=== PATIENT | female | born 1975 | race Caucasian/White ===

== ENCOUNTER 2020-10-27 09:50 | Emergency (ER) | payer BC, SELFPAY ==
--- NOTE | ~2020-10-27 | US_ITS ---
EXAMINATION: US pelvic complete w TV DATE: 10/27/2020 10:50 INDICATION: Abnormal uterine bleeding Comparison:Ultrasound dated 01/06/2015 TECHNIQUE: Multiple transabdominal and endovaginal sonographic images of the pelvis performed. FINDINGS: The uterus measures 10.1 x 5.2 x 4.4 cm. The endometrial complex measures 1 cm. The right ovary is surgically absent. Left ovary is unremarkable measuring 3.8 x 2.9 x 2.9 cm. There is an adjacent hyperechoic mass measuring up to 2.5 cm compared with 2.9 cm on prior examination. There is free fluid in the pelvis. There are no abnormal masses seen on either side. IMPRESSION: 1. Echogenic 2.5 cm left ovarian/adnexal mass, likely a dermoid. Consider correlation with CT. Reviewed, dictated and finalized at location A. IMPRESSION: 1. Echogenic 2.5 cm left ovarian/adnexal mass, likely a dermoid. Consider corre lation with CT.
--- NOTE | ~2020-10-27 | CT_ITS ---
EXAMINATION: CT abdomen pelvis wo con DATE: 10/27/2020 11:49 INDICATION: Lower abdominal pain, adnexal mass TECHNIQUE: Computed tomography (CT) of the abdomen and pelvis was performed without intravenous contr ast. The dose-length product (DLP) was 828.27 mGy-cm. Automated exposure control and iterative recons truction technique were employed. COMPARISON: Ultrasound from today FINDINGS: There is a 4 mm nodule of the right lower lobe. The heart size is normal. The liver, spleen , pancreas, and left adrenal gland are normal. A 7 mm low-density mass in the lateral limb of the rig ht adrenal gland is consistent with an adenoma. The kidneys are unremarkable. No pathologically enlar ged abdominal or pelvic lymph nodes are identified. The appendix is normal. There is an approximately 6.3 x 2.8 cm left adnexal mass which demonstrates fat, fluid, and soft tissue density. There is mild lumbar spondylosis. IMPRESSION: 1. No CT correlate for lower abdominal pain. 2. Left adnexal mass with characteristics suggestive of a dermoid although evaluation is limited by t he absence of intravenous contrast. Recommend nonemergent DANCE THERAPIST follow-up and ultrasound in one year if not surgically removed. Reviewed, dictated and finalized at location A. IMPRESSION: 1. No CT correlate for lower abdominal pain. 2. Left adnexal mass with characteristics suggestive of a dermoid although eval uation is limited by the absence of intravenous contrast. Recommend nonemergent DANCE THERAPIST follow-up and ultrasound in one year if not surgically removed.
[2020-10-27 10:06] VITALS: BP 154/105; PULSE 94; RESP 16; TEMP 36.6; O2SAT 99
--- NOTE | 2020-10-27 10:11 | ED.FEMALEGU ---
HPI - Female Genitourinary General Chief complaint: WIRELESS OPERATOR Stated complaint: N/Diarrhea/Heavy Periods/Headache Time Seen by Provider: 10/27/20 09:56 Source: patient Mode of arrival: ambulatory Limitations: no limitations History of Present Illness HPI Narrative: This is a 45-year-old female that presents to the emergency department for abnormal uterine bleeding. Reports she started her cycle 5 days ago. Reports it has been very heavy. She has been having to use a tampon an hour. She is also having abnormal cramping. She called her primary doctor which prompted her to be seen in the ER. Denies fever, or urinary symptoms. Related Data Allergies Allergy/AdvReac Type Severity Reaction Status Date / Time lisinopril Allergy Unknown Verified 05/31/17 10:48 Review of Systems Review of Systems: CONSTITUTIONAL: Denies fever GASTROINTESTINAL: Reports pelvic cramping. Denies nausea, vomiting GENITOURINARY: Denies dysuria or hematuria. All systems reviewed & are unremarkable except as noted in HPI and below PMFSH Past Medical History Medical History (Updated 10/27/20 @ 13:21 by Tisha Head PA-C) History of PCOS Family History Family History (Updated 05/31/17 @ 10:51 by DOCTOR UNKNOWN) Other Cerebrovascular accident Diabetes mellitus Family history of malignant neoplasm Hypertension Social History Social History Smoking status: Current every day smoker Alcohol intake: current Exam Narrative: GENERAL: Well-appearing, well-nourished, and in no acute distress. HEAD: Normocephalic, atraumatic. EYES: EOMI. CHEST: Clear to auscultation. No respiratory distress. No wheezes rales or rhonchi HEART: Regular rate and rhythm. No murmur heard. Normal peripheral pulses. ABDOMEN: Soft, nontender, nondistended, normal active bowel sounds. EXTREMITIES: Normal range of motion. No edema. SKIN: Warm, dry, no rash. NEURO: No focal deficits. Alert and oriented x3. PSYCH: Normal mood and affect PELVIC: Small amount of dark red blood in the vaginal vault. Normal appearing cervix Course Consultations Consultation #1: Spoke with Dr. Cannon about patient and workup who will follow up in clinic. Date: 10/27/20 Time: 13:20 Vital Signs Vital signs: Vital Signs Temperature 98 F 10/27/20 10:06 Pulse Rate 94 10/27/20 10:06 Respiratory Rate 16 10/27/20 10:06 Blood Pressure 154/105 H 10/27/20 10:06 Pulse Oximetry 99 10/27/20 10:06 Temperature 98 F 10/27/20 10:06 Pulse Rate 94 10/27/20 10:06 Respiratory Rate 16 10/27/20 10:06 Blood Pressure 154/105 H 10/27/20 10:06 Pulse Oximetry 99 10/27/20 10:06 MDM - Female Genitourinary MDM Narrative Medical decision making narrative: Patient presents to the emergency department for abnormal uterine bleeding. Her vitals are stable. Hemoglobin is 12.6. Metabolic panel with mild transaminitis. Patient does report she thinks she has been told before that her liver enzymes have been elevated in the past. I do not have any recent labs to compare this to. Instructed to follow-up with her primary for this. Pelvic ultrasound shows a 2.5 cm left ovarian/adnexal mass likely dermoid cyst. Normal vascular flow to left ovary. Consider correlation with CT. CT scan of the abdomen and pelvis once again shows an adnexal mass with characteristics suggested of a dermoid cyst. Recommend nonemergent gynecologic follow-up. Spoke with Dr. Cannon about patient and workup who will follow up in clinic. Patient was updated on case findings. She is stable and felt appropriate for further outpatient evaluation. She was given warnings to return to the ER Lab Data Attestation: I reviewed the patient's lab results. Result diagrams: 10/27/20 10:55 10/27/20 10:56 Labs: Lab Results 10/27/20 10/27/20 10/27/20 Range/Units 10:55 10:55 10:56 WBC 9.7 (4.5-10.0) K/mm3 RBC 4.05 L (4.2-5.4) M/mm3 Hgb 12.6 (12.0-15.0) g/dL Hct 3
[2020-10-27 11:05] LABS: Basophils Absolute Auto 0.1 K/mm3 (0.0-0.1); Basophils Percent Auto 0.7 % (0.2-1.2); Eosinophils Absolute Auto 0.1 K/mm3 (0-0.3); Eosinophils Percent Auto 0.9 % (0-4.4); Hematocrit 38.6 % (37.0-47.0); Hemoglobin 12.6 g/dL (12.0-15.0); Immature Granulocyte Absolute 0.03 K/mm3 (0.00-0.031); Immature Granulocyte Percent A 0.3 % (0-0.5); Lymphocytes Absolute Auto 3.73 K/mm3 (0.9-3.2); Lymphocytes Percent Auto 38.5 % (18.3-44.2); Mean Corpuscular HGB Conc 32.6 g/dl (32-36); Mean Corpuscular Hemoglobin 31.1 pg (26-34); Mean Corpuscular Volume 95.3 fl (80-100); Mean Platelet Volume 9.9 fl (7.4-10.4); Monocytes Absolute Auto 0.5 K/mm3 (0.1-0.6); Monocytes Percent Auto 4.8 % (2.6-8.5); Neutrophils Absolute Auto 5.3 K/mm3 (1.3-6.7); Neutrophils Percent Auto 54.8 % (45.5-73.1); Platelet Count Result 220 k/mm3 (150-375); Red Blood Count 4.05 M/mm3 (4.2-5.4); Red Cell Distribution Width 13.2 % (11.5-14.5); White Blood Count 9.7 K/mm3 (4.5-10.0)
[2020-10-27] MEDS: IBUPROFEN IV 400 MG in SODIUM CHLORIDE 0.9% IV 100 ML 200 MG IVPB (11:17)
[2020-10-27 11:18] LABS: Alanine Aminotransferase 92 U/L (4-35); Albumin Level 4.4 g/dL (3.5-5.1); Alkaline Phosphatase 58 U/L (38-126); Anion Gap 12 mmol/L (8-16); Aspartate Amino Transferase 110 U/L (14-36); Bilirubin,Total 0.4 mg/dL (0.2-1.3); Blood Urea Nitrogen 9 mg/dL (7-17); Calcium 9.3 mg/dL (8.4-10.2); Carbon Dioxide 21 mmol/L (22-30); Chloride 106 mmol/L (98-107); Estimated CRCL calculation 131 ml/min; Estimated Glomerular Filt Rate > 60; Glucose 146 mg/dL (65-110); Potassium 3.9 mmol/L (3.4-5.0); Sodium 139 mmol/L (137-145)
[2020-10-27 11:29] LABS: Partial Thromboplastin Time 28.6 SECONDS (22.3-36.8); Prothrombin Time 12.6 Seconds (11.1-14.7)
[2020-10-27 13:51] VITALS: BP 137/96; PULSE 76; RESP 18; O2SAT 99
== END 2020-10-27 13:55 | disposition home or self-care (01) ==
PROVIDERS: Physician Assistant; Emergency Provider Emergency Medicine; PCP Physician Assistant
DX: N93.9 Abnormal uterine and vaginal bleeding, unspecified (principal); N83.202 Unspecified ovarian cyst, left side; R74.01 Elevation of levels of liver transaminase levels; F17.210 Nicotine dependence, cigarettes, uncomplicated
CPT/HCPCS: 36415; 74176; 76830; 76856; 80053; 85025; 85610; 85730; 86850; 86900; 86901; 96365; 99284; J1741

== ENCOUNTER → 2020-11-24 02:41 | Outpatient (CLI) | payer BC, SELFPAY ==
[2020-11-24 16:22] LABS: SARS-CoV-2 RNA PCR Negative
== END ==
PROVIDERS: PCP Physician Assistant; Visit Provider Obstetrics & Gynecology
DX: Z01.812 Encounter for preprocedural laboratory examination (principal); Z20.822 Contact with and (suspected) exposure to COVID-19
CPT/HCPCS: C9803; U0003; U0005

== ENCOUNTER 2020-11-24 08:56 | Outpatient (CLI) | payer BC, SELFPAY ==
--- NOTE | 2020-11-24 08:45 | ECG_ITS ---
Measurements Intervals [place] Rate: 66 P: 28 WA: 173 QRS: 64 QRSD: 92 T: 61 QT: 418 QTc: 438 Interpretive Statements SINUS RHYTHM INCOMPLETE RIGHT BUNDLE BRANCH BLOCK DELAYED PRECORDIAL R/S TRANSITION BORDERLINE T WAVE ABNORMALITY- ANTERIOR LEADS BORDERLINE ECG Electronically Signed On 11-24-2020 9:51:41 CDT by Juan López D.O.
== END 2020-11-24 08:57 | disposition home or self-care (01) ==
LOC: ANHSURGERY 09:01
PROVIDERS: PCP Physician Assistant; Visit Provider Obstetrics & Gynecology
DX: Z01.818 Encounter for other preprocedural examination (principal); N85.2 Hypertrophy of uterus; I10 Essential (primary) hypertension; I45.10 Unspecified right bundle-branch block; I25.2 Old myocardial infarction
CPT/HCPCS: 36415; 86850; 86900; 86901; 93005

== ENCOUNTER 2020-11-27 00:39 | Day surgery (SDC) | payer BC, SELFPAY ==
[2020-11-20 09:19] VITALS: BMI 33.3
--- NOTE | 2020-11-24 07:45 | PM.IMHP ---
H&P: HPI History of Present Illness Date/Time: 11/24/20 07:45 This is a 45-year-old 3 para 3 admitted for robotic total vaginal hysterectomy and left salpingo-oophorectomy. She has what appears to be a large left dermoid cyst and complains of bleeding and dysmenorrhea as well as dyspareunia. Uterus is also enlarged. Risks and benefits reviewed including but not exclusive of , aspiration pneumonia, bleeding, transfusion, perforation injury to bowel, bladder, ureters, or other internal organs with need for open laparotomy. She received the ACOG handout entitled hysterectomy. She had all questions answered. She asked to proceed Chief Complaint: Left dermoid cyst and enlarged uterus with bleeding and dysmenorrhea Review of Systems Review of Systems: All systems reviewed & are unremarkable except as noted in HPI and below PMFSH Past Medical History Medical History History of PCOS Family History Family History Other Cerebrovascular accident Diabetes mellitus Family history of malignant neoplasm Hypertension Social History Social History Smoking packs per day: 0.5 Smoking cigarettes per day: 10.0 Years smoked: 30 Smoking pack-years: 15.00 Smoking status: Current every day smoker Tobacco type: cigarettes Alcohol intake: never Substance use: never Substance use type: does not use Spiritual care concerns: No Meds Home Medications and Allergies Home Medications Medication Instructions Recorded Confirmed Type No Home Medications 11/20/20 11/20/20 History Allergies Allergy/AdvReac Type Severity Reaction Status Date / Time lisinopril Allergy Unknown Cough Verified 11/20/20 09:18 Exam Const: General: no acute distress Eyes: General: appearance normal, both eyes and all related structures Neck: Neck: supple and no JVD Thyroid: thyroid normal Resp: Effort & Inspection: normal respiratory effort Auscultation: clear to auscultation bilaterally Cardio: Rate: regular rate Rhythm: regular rhythm GI: Inspection: non-distended GI Palp: Yes Soft to palpation, No Tenderness to palpation present (GI) and No Guarding due to palpation present (GI) Auscultation: normal bowel sounds : External Female Exam: normal external appearance Speculum Exam - Cervix: normal appearance of the cervix Bimanual exam- vagina & uterus: enlarged Bimanual Exam- Adnexa, other: Adnexal mass present on the left Skin: General skin exam: no rashes or lesions noted Extrem: General: normal to inspection and no edema Psych: Mental Status: mental status grossly normal Affect: normal affect Assessment and Plan Additional Plan Impression: Enlarged uterus and left dermoid cyst Plan: Robotic total vaginal hysterectomy and left salpingo-oophorectomy
[2020-11-27] VITALS (13 sets, daily range): BP systolic 123–159; BP diastolic 70–96; PULSE 69–96; RESP 10–18; TEMP 36.5–37.5; O2SAT 92–99
--- NOTE | 2020-11-27 07:10 | WPDHPUPDATE1 ---
History and Physical Update Update Date/Time: 11/27/20 07:10 History and Physical has been reviewed, including an updated exam of the patient. There are NO changes in the patient's condition. Risks, benefits, and alternatives have been discussed and questions answered. Patient agrees to proceed with procedure.
[2020-11-27] MEDS: ACETAMINOPHEN 500 MG TABLET 1000 MG PO (08:45)
[2020-11-27] MEDS: LACTATED RINGERS 1,000 ML 30 ML IV CONT ×2 (08:46→11:38)
--- NOTE | 2020-11-27 08:49 | P.PNAN_ITS ---
Anes - Initial Pre Proc Eval Procedure: Operation Date: 11/27/20 10:00 Proposed Procedures p Robotic Assisted Total Vaginal Hysterectomy with Left Salpingo-Oophorectomy - Scout Abel MD Date/Time: 11/27/20 08:49 Surgeon: Scout Abel MD Pre Op Diagnosis: irregular bleeding,dermoid cyst, enl uterus,dysme Patient Data Age: 45 Gender: F Height: 1.65 m Weight: 90.72 kg Allergies Allergy/AdvReac Type Severity Reaction Status Date / Time lisinopril Allergy Unknown Cough Verified 11/27/20 08:33 Home Medications Medication Instructions Recorded Confirmed Type hydrocodone-acetaminophen 1 tablet PO Q4H PRN #30 tablet 11/27/20 Rx Patient hx anesthesia problems: none and other (motion sickness) Family hx anesthesia problems: none Results Review: All pre-operative results and documents have been reviewed as part of the pre-operative evaluation. FORMERLY [facility], [facility] Past Medical History Medical History History of PCOS Hypertension Family History Family History Other Cerebrovascular accident Diabetes mellitus Family history of malignant neoplasm Hypertension Social History Social History Smoking packs per day: 0.5 Smoking cigarettes per day: 10.0 Years smoked: 30 Smoking pack-years: 15.00 Smoking status: Current every day smoker Tobacco type: cigarettes Alcohol intake: never Substance use: never Substance use type: does not use Living arrangements: with family Spiritual care concerns: No Anes - Eval Final PreProcedure Day of Procedure 11/27/20 08:49 Patient weight: obese Heart: regular rate and rhythm Lungs: decreased breath sounds Airway: Mallampati scale class II Neurological: alert and oriented Last oral intake: >/= 8 hours ASA classification: III Emergent: no Anesthetic plan: proceed Anesthesia type and monitoring: general ETT and standard monitoring Results Review: All pre-operative results and documents have been reviewed as part of the pre-operative evaluation. Informed Consent: The patient's anesthetic plan and its attendant risks and benefits were discussed with the patient/family/POA. Questions were solicited and answers provided to the satisfaction of the patient/family/POA.
[2020-11-27] MEDS: KETOROLAC 15 MG/ML VIAL (*BKC) IV PUSH (09:00)
[2020-11-27] MEDS: SCOPOLAMINE 1.5 MG PATCH TRANSDERM (09:39)
[2020-11-27] MEDS: ceFAZolin 2 GM/D5W 50 ML 2 GM/50 ML BAG IVPB (10:10)
--- NOTE | 2020-11-27 11:34 | W.PM.PROC2 ---
Procedure Note - Detailed Date of Procedure 11/27/20 Pre-op Diagnosis irregular bleeding,dermoid cyst, enl uterus,dysme Post-op Diagnosis same Procedure Performed Robotic total vaginal hysterectomy and left salpingo-oophorectomy with right salpingectomy Surgeon Scout Abel MD Anesthesia general Indications This is a 45-year-old female with an enlarged uterus bleeding and a suspected left large dermoid cyst Findings Enlarged uterus. Normal-appearing right ovary. Tubes status post tubal ligation. The large complex left ovarian cyst Description of Procedure The patient was prepped draped in the normal sterile fashion placed in the dorsal lithotomy position. Under excellent general endotracheal anesthesia weighted speculum placed in posterior fornix. Anterior lip of the cervix grasped with single-tooth tenaculum and the uterus sounded to 10cm. Serial dilatation with fragmented dilators performed followed by passage a 10 RAFAEL and the 3. 0.5 cold cup. A 16 [place] catheter was placed in bladder and drained of clear urine. The weighted speculum was removed and the gloves were changed. A supraumbilical incision made the Veress needle passed in the abdomen. The abdomen filled with CO2 gas [id number]. The 8mm trocar advanced in the abdomen the downside visualized with no injury seen PA. Gas reattached placed in placed in Trendelenburg and right left lateral quadrant incisions made. The 8mm trocars advanced under direct visualization assuring no injury. Right upper quadrant incision made the 8mm trocar advanced under direct visualization assuring no injury. The robot was docked. Attention was turned to the counseling specialist. A large complex left ovarian cyst was seen which was somewhat adherent to the ovarian fossa. Using gentle sharp dissection and retraction this was dissected away and freed. The left round ligament was grasped, burned, cut. Anteriorly a bladder flap was formed by dissecting the peritoneum and reflecting the bladder caudally to the opposite round ligament was clamped, burned, cut. The left fallopian tube was then dissected away from the ovary on the right. The left infundibulopelvic structure was skeletonized. This was clamped, burned, cut and brought to the level of the previously cut round ligament. Next the cardinal broad ligaments on the left were serially skeletonized. These were clamped, burned, cut and brought down to the level of the uterine vessels. The utero-ovarian ligament on the right was clamped, burned, cut and the right ovary was maintained. The cardinal and broad ligaments on the left were then serially skeletonized. These were clamped, burned, cut and brought down lateral edge of the uterus and cervix. The uterine vessels on the right were then serially clamped burned and cut. In like fashion the uterine vessels on the left were serially clamped, burned, cut. Blanching of the uterus was noted. Colpotomy incision was made in the cervix uterus left ovary and tube right tube were all removed through the vagina. Blood loss estimated at [id number]. The vagina was closed with continuous running 0V lock from lateral edge to lateral edge back to the midline. Irrigation undertaken to clear the pedicles appeared dry. [place] term was placed over the raw surface area. The robot was undocked. The gas removed from the abdomen. The instead trocars removed and the incisions closed with 4 Monocryl and glue. The patient was awakened and went to recovery in satisfactory condition. All sponge, needle, instrument counts were correct. There were no immediate complications Estimated Blood Loss 50 Drains No Packing No Pathology yes Complications No immediate complications Condition stable Disposition PACU
[2020-11-27] MEDS: fentaNYL CITRATE INJ (*CRX) 100 MCG/2 ML VIAL 25 MCG IV PUSH ×4 (12:10→13:02)
--- NOTE | 2020-11-27 12:27 | SUR.PHASEI ---
[id number] sbar faxed floor notified
[2020-11-27 13:41] LABS: Glucose Point of Care 208 mg/dl (65-105)
--- NOTE | 2020-11-27 14:00 | PC.NURSE ---
PT arrived on unit accompanied by spouse and taken to room 279 via bed. PT alert and awake and oriented to room and surrounding area. 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 PT received such instructions this shift via one to one discussion and demonstration. PT and spouse both recipients of such instructions and no barriers to learning identified at this time.PT verbalized understanding of such care.
[2020-11-27] MEDS: KETOROLAC 30 MG/ML VIAL (*BKC) IV PUSH (14:47)
[2020-11-27] MEDS: HYDROcodone/acetaminophen (*CRX) 5-325 MG TABLET 1 TAB PO ×2 (14:48→18:07)
[2020-11-27] MEDS: DEXTROSE 5%/LACTATED RINGERS 1,000 ML 125 ML IV CONT (14:48)
[2020-11-27] MEDS: SIMETHICONE 80 MG TAB.CHEW PO ×3 (14:49→22:07)
[2020-11-27] MEDS: DOCUSATE SODIUM 100 MG CAPSULE PO (18:04)
[2020-11-27] MEDS: IBUPROFEN 600 MG TABLET PO (18:07)
[2020-11-27] MEDS: HYDROcodone/acetaminophen (*CRX) 10-325 MG TABLET 1 TAB PO (22:09)
[2020-11-28] MEDS: IBUPROFEN 600 MG TABLET PO ×2 (00:50→05:53)
[2020-11-28] MEDS: HYDROcodone/acetaminophen (*CRX) 5-325 MG TABLET 1 TAB PO (00:50)
[2020-11-28 04:00] VITALS: BP 129/78; PULSE 72; RESP 18; TEMP 36.9
[2020-11-28 05:24] LABS: Basophils Percent Auto 0.3 % (0.2-1.2); Hematocrit 35.6 % (37.0-47.0); Hemoglobin 11.9 g/dL (12.0-15.0); Immature Granulocyte Absolute 0.07 K/mm3 (0.00-0.031); Immature Granulocyte Percent A 0.6 % (0-0.5); Lymphocytes Absolute Auto 2.13 K/mm3 (0.9-3.2); Lymphocytes Percent Auto 18.4 % (18.3-44.2); Mean Corpuscular HGB Conc 33.4 g/dl (32-36); Mean Corpuscular Hemoglobin 32.3 pg (26-34); Mean Corpuscular Volume 96.7 fl (80-100); Mean Platelet Volume 10.8 fl (7.4-10.4); Monocytes Absolute Auto 0.6 K/mm3 (0.1-0.6); Monocytes Percent Auto 5.3 % (2.6-8.5); Neutrophils Absolute Auto 8.8 K/mm3 (1.3-6.7); Neutrophils Percent Auto 75.4 % (45.5-73.1); Platelet Count Result 190 k/mm3 (150-375); Red Blood Count 3.68 M/mm3 (4.2-5.4); Red Cell Distribution Width 13.4 % (11.5-14.5); White Blood Count 11.6 K/mm3 (4.5-10.0)
[2020-11-28] MEDS: SIMETHICONE 80 MG TAB.CHEW PO ×2 (05:52→09:50)
[2020-11-28] MEDS: HYDROcodone/acetaminophen (*CRX) 10-325 MG TABLET 1 TAB PO ×2 (05:52→09:51)
[2020-11-28 09:45] VITALS: BP 126/82; PULSE 72; PULSE 77; RESP 14; RESP 18; TEMP 36.5; O2SAT 95; O2SAT 96
[2020-11-28] MEDS: DOCUSATE SODIUM 100 MG CAPSULE PO (09:51)
[2020-11-28] MEDS: ENOXAPARIN 40 MG/0.4 ML SYRINGE SUB-Q (09:52)
--- NOTE | 2020-11-28 10:36 | PM.GYNPNOP ---
BEATER DUMPER - A/P Postoperative Procedures: Procedures Operation Date: 11/27/20 10:00 Actual Procedure Side Surgeon p Robotic Assisted Total Vaginal Hysterectomy, Bilateral Salpingectomy, Left Oophorectomy Scout Abel MD A: POD#1, doing well. P: Home to f/u 2 weeks. Time Spent With Patient Time with patient: less than 15 minutes BEATER DUMPER- PN:Subj Post-Op Subjective Date/time seen: 11/28/20 10:36 Interval history: Pain OK. Tolerating diet. Voiding. Would like to go home. Exam Narrative: AVSS I/O OK ABD soft, nontender. Incisions c/d/i. EXT nontender BEATER DUMPER - PN: Obj Data Vital Signs Vital Signs: Vital Signs - 24 hr 11/27/20 11:45 11/27/20 12:00 11/27/20 12:15 Temperature 36.5 C Pulse Rate 96 77 79 Respiratory Rate 12 14 14 Blood Pressure 159/96 H 156/85 H 155/95 H Pulse Oximetry 96 98 95 11/27/20 12:30 11/27/20 12:45 11/27/20 13:00 Temperature Pulse Rate 69 79 78 Respiratory Rate 10 L 16 14 Blood Pressure 152/94 H 153/93 H 150/96 H Pulse Oximetry 92 93 94 11/27/20 13:15 11/27/20 13:45 11/27/20 14:00 Temperature 37.5 C Pulse Rate 72 78 72 Respiratory Rate 14 16 16 Blood Pressure 147/91 H 137/86 140/83 Pulse Oximetry 94 94 95 11/27/20 14:30 11/27/20 18:30 11/27/20 23:34 Temperature 37.1 C 37.1 C Pulse Rate 75 84 83 Respiratory Rate 18 18 18 Blood Pressure 136/79 123/70 Pulse Oximetry 95 11/28/20 04:00 Temperature 36.9 C Pulse Rate 72 Respiratory Rate 18 Blood Pressure 129/78 Pulse Oximetry Intake/Output Intake/Output: Intake & Output 11/25/20 11/26/20 11/27/20 11/28/20 23:59 23:59 23:59 23:59 Intake Total 0 2740 Output Total 1210 1800 Balance 840 940 Meds/Results Medications: Active Medications Generic Name Dose Route Start Last Admin Trade Name Freq PRN Reason Stop Dose Admin Hydrocodone Bitart/Acetaminophen 1 tab 11/27/20 13:49 11/28/20 00:50 Hydrocodone/Acetaminophen (*Crx) 5-325 Mg Tablet PO 1 tab Q3H PRN Administration Pain Rated 5 or Less Hydrocodone Bitart/Acetaminophen 1 tab 11/27/20 13:49 11/28/20 09:51 Hydrocodone/Acetaminophen (*Crx) 10-325 Mg Tablet PO 1 tab Q3H PRN Administration Pain Rated 6 or Greater Docusate Sodium 100 mg 11/27/20 17:00 11/28/20 09:51 Docusate Sodium 100 Mg Capsule PO 100 mg BID ARLYN Administration Enoxaparin Sodium 40 mg 11/28/20 09:00 11/28/20 09:52 Enoxaparin 40 Mg/0.4 Ml Syringe SUB-Q 40 mg DAILY ARLYN Administration Ibuprofen 600 mg 11/27/20 13:49 11/28/20 05:53 Ibuprofen 600 Mg Tablet PO 600 mg Q6H PRN Administration Cramping Ketorolac Tromethamine 30 mg 11/27/20 13:49 11/27/20 14:47 Ketorolac 30 Mg/Ml Vial (*Bkc) IV PUSH 12/02/20 13:48 30 mg Q6H PRN Administration Pain Rated 4-6 Naloxone HCl 0.1 mg 11/27/20 13:49 Naloxone Hcl 0.4 Mg/Ml Vial IV PUSH Q2M PRN Respiratory rate less than 10 Ondansetron HCl 4 mg 11/27/20 13:49 Ondansetron Inj 4 Mg/2 Ml Vial IV PUSH Q6H PRN Nausea And Vomiting Simethicone 80 mg 11/27/20 13:49 11/28/20 09:50 Simethicone 80 Mg Tab.Chew PO 80 mg Q2H PRN Administration Gas Labs CBC & Chem 7: 11/28/20 03:29 Labs: Laboratory Results - last 24 hr 11/27/20 11/28/20 13:39 03:29 WBC 11.6 H RBC 3.68 L Hgb 11.9 L Hct 35.6 L MCV 96.7 MCH 32.3 MCHC 33.4 RDW 13.4 Plt Count 190 MPV 10.8 H Immature Gran % (Auto) 0.6 H Neut % (Auto) 75.4 H Lymph % (Auto) 18.4 Kerr % (Auto) 5.3 Eos % (Auto) 0.0 Baso % (Auto) 0.3 Lymph # (Auto) 2.13 Kerr # (Auto) 0.6 Eos # (Auto) 0.0 Baso # (Auto) 0.0 Abs Immat Gran (auto) 0.07 H Absolute Neuts (auto) 8.8 H Absolute Nucleated RBC 0.0 Nucleated RBC % 0.0 POC Capillary Glucose 208 H
== END 2020-11-28 11:37 | disposition home or self-care (01) ==
LOC: ANHSURGERY 08:09 → ANHOB2 14:25
PROVIDERS: PCP Physician Assistant; Visit Provider Obstetrics & Gynecology
PROC: (CPT 58552; principal; 2020-11-27 10:00)
DX: D27.1 Benign neoplasm of left ovary (principal); N80.0 Endometriosis of uterus; N73.6 Female pelvic peritoneal adhesions (postinfective); N94.6 Dysmenorrhea, unspecified; N94.10 Unspecified dyspareunia; I10 Essential (primary) hypertension; F17.210 Nicotine dependence, cigarettes, uncomplicated; E66.9 Obesity, unspecified; Z68.33 Body mass index [BMI] 33.0-33.9, adult
CPT/HCPCS: 58552; S2900; 36415; 82948; 85025; 88307; 99199; A9270; J0330; J0690; J1100; J1170; J1650; J1885; J2250; J2405; J2704; J2710; J3010; J7030; J7120; J7121

== ENCOUNTER 2021-04-18 16:05 | Emergency (ER) | payer BC, SELFPAY ==
--- NOTE | ~2021-04-18 | XR_ITS ---
XR ankle LT min 3V 04/18/2021 16:36 Indication: General pain with pivoting. Procedure: 4 views left ankle Comparison: No prior studies for comparison. Findings: There is a mixed lytic/sclerotic lesion of the distal aspect of the tibia at the metadiaphy sis. There is mild cortical thickening. Finding is nonspecific. No acute fracture or traumatic malali gnment. Impression: 1: No acute fracture. 2: Mixed lytic/sclerotic lesion of the distal tibial metadiaphysis, nonspecific. Recommend correlatio n with bone scan to assess for abnormal uptake. Reviewed, dictated and finalized at location A. ME WRITER Impression: 1: No acute fracture. 2: Mixed lytic/sclerotic lesion of the distal tibial metadiaphysis, nonspecific . Recommend correlation with bone scan to assess for abnormal uptake.
[2021-04-18 16:15] VITALS: BP 142/77; PULSE 106; RESP 18; TEMP 37.1; O2SAT 99
--- NOTE | 2021-04-18 16:33 | ED.LOWEXIN ---
HPI - Extremity Injury (Lower) General Chief Complaint: Extremity Injury, Lower Stated Complaint: lt ankle pain Time Seen by Provider: 04/18/21 16:34 Source: patient Mode of arrival: ambulatory Limitations: no limitations History of Present Illness HPI Narrative: 45 y/o female presented for c/o pain and swelling to left ankle x1 week. Believes she 'twisted' the ankle about one week ago, feeling a sharp pain through the ankle at the time but did not recall if she inverted the foot. Since then pain constant, worse with walking on the heel, sharp and radiating to toes, tender to lateral aspect. No bruising or redness, no weakness or numbness. Meanwhile, her job requires walking and carrying heavy equipment. Has been taking ibuprofen for sx. Endorses hx multiple fractures to left foot as a child, requiring casting only. Related Data Home Medications Medication Instructions Recorded Confirmed atorvastatin 20 mg PO DAILY 04/18/21 04/18/21 estradiol 1 mg PO DAILY 04/18/21 04/18/21 losartan 50 mg PO DAILY 04/18/21 04/18/21 metformin 500 mg PO DAILY 04/18/21 04/18/21 Allergies Allergy/AdvReac Type Severity Reaction Status Date / Time lisinopril Allergy Unknown Cough Verified 04/18/21 16:31 Review of Systems Review of Systems: CONSTITUTIONAL: Denies body aches, fever, chills EYES: Denies visual changes ENT: Denies rhinorrhea, congestion CARDIOVASCULAR: Denies chest pain, palpitations, or edema. RESPIRATORY: Denies cough or dyspnea. GASTROINTESTINAL: Denies abdominal pain, nausea, vomiting, or diarrhea. SKIN: Denies rash, itching, or wounds. MUSCULOSKELETAL: reports left ankle pain NEUROLOGIC: Denies headache, numbness, tingling, or weakness. PSYCH: Denies depression or anxiety. All systems reviewed & are unremarkable except as noted in HPI and below PMFSH Past Medical History Medical History History of PCOS Hypertension Family History Family History Other Cerebrovascular accident Diabetes mellitus Family history of malignant neoplasm Hypertension Social History Social History Smoking packs per day: 0.5 Smoking cigarettes per day: 10.0 Years smoked: 30 Smoking pack-years: 15.00 Smoking status: Current every day smoker Tobacco type: cigarettes Alcohol intake: never Substance use: never Substance use type: does not use Gender identity (if verbalized by the patient): Female Sexual Orientation (if Verbalized by the Patient): Straight or Heterosexual Spiritual care concerns: No Comments At time of signature, I have reviewed and agree with nursing past medical, surgical, social and family history unless otherwise noted. Please see nursing chart for further information. There is no relevant family history pertinent to the presenting complaint Exam Narrative: GENERAL: Well-appearing, well-nourished, and in no acute distress. HEAD: Normocephalic, atraumatic. EYES: PERRLA, conjunctivae clear NECK: Supple. CHEST: Speaks in full sentences. No respiratory distress. HEART: Regular rate and rhythm. Normal and equal peripheral pulses. EXTREMITIES: Left foot has normal strength and sensation, normal range of motion with flexion/extension/rotation, but endorses pain with movement. No edema or ecchymosis, tender to left lateral ankle with palpation, No open wounds, skin tenting, or obvious deformity; alignment normal, pulse palpable and equal bilaterally, skin warm, dry, pink. Capillary refill less than 3 seconds. SKIN: Warm, dry, no rash. NEURO: Alert and oriented x3. PSYCH: Normal mood and affect Course Course Emergency Course: Patient is aware of diagnosis, understands and agrees to treatment plan. Anticipatory guidance given. Patient agrees to follow-up as directed and is aware of reasons to seek care at the emergency de
== END 2021-04-18 17:00 | disposition home or self-care (01) ==
PROVIDERS: Emergency Provider Nurse Practitioner Family; PCP Physician Assistant
DX: M25.572 Pain in left ankle and joints of left foot (principal); F17.210 Nicotine dependence, cigarettes, uncomplicated; E28.2 Polycystic ovarian syndrome; I10 Essential (primary) hypertension
CPT/HCPCS: 73610; 99213; G0463

== ENCOUNTER 2021-06-17 16:16 | Emergency (ER) | payer BC, SELFPAY ==
--- NOTE | ~2021-06-17 | XR_ITS ---
EXAMINATION: XR chest 2V DATE: 06/17/2021 17:26 INDICATION: Chest pain and shortness of breath TECHNIQUE: PA and lateral views of the chest are obtained. COMPARISON: None available FINDINGS: The lungs are free of acute opacities. There is no pleural effusion or pneumothorax. The ca rdiomediastinal silhouette is normal. The visualized bones and soft tissues are unremarkable. The gal lbladder is surgically absent. There is mild enlargement of the common bile duct and central intrahep atic ducts which is likely due to post cholecystectomy state. IMPRESSION: 1. No acute cardiopulmonary abnormality. Reviewed, dictated and finalized at location B.
[2021-06-17 16:20] VITALS: BP 155/88; PULSE 82; RESP 18; TEMP 36.7; O2SAT 99
--- NOTE | 2021-06-17 16:41 | ECG_ITS ---
Measurements Intervals Ona Rate: 79 P: 31 CA: 181 QRS: 57 QRSD: 94 T: 51 QT: 397 QTc: 457 Interpretive Statements SINUS RHYTHM INCOMPLETE RIGHT BUNDLE BRANCH BLOCK BASELINE ARTIFACT- I, II, AVR, AVL, AVF, V1 BORDERLINE ECG Electronically Signed On 06-17-2021 19:57:13 CDT by Juan López D.O.
--- NOTE | 2021-06-17 17:00 | ED.CHESTPAIN ---
HPI - Chest Pain General Chief Complaint: Chest Pain Stated Complaint: Back/Chest Pain Time Seen by Provider: 06/17/21 17:01 Source: patient Mode of arrival: ambulatory Limitations: no limitations History of Present Illness HPI narrative: 45-year-old female presented for complaint of pain between shoulder blades, pain is worse with movement or taking deep breaths. Back pain is constant sharp and aching. It has caused her to catch her breath at times. The pain also moved to the center of her chest, which is intermittent and sharp. She denies radiating pain to neck or jaw, denies associated cough, shortness of breath, palpitations, nausea, vomiting, dizziness, fevers or chills. She is a current smoker half PPD. History of hysterectomy and cholecystectomy. Related Data Home Medications Medication Instructions Recorded Confirmed atorvastatin 20 mg PO DAILY 04/18/21 04/18/21 estradiol 1 mg PO DAILY 04/18/21 04/18/21 losartan 50 mg PO DAILY 04/18/21 04/18/21 metformin 500 mg PO DAILY 04/18/21 04/18/21 Allergies Allergy/AdvReac Type Severity Reaction Status Date / Time lisinopril Allergy Unknown Cough Verified 04/18/21 16:31 Review of Systems Review of Systems: CONSTITUTIONAL: Denies body aches, fever, chills, or sweats. EYES: Denies visual changes, redness, or discharge. ENT: Denies rhinorrhea, congestion, sore throat, or otalgia. CARDIOVASCULAR: reports anterior/posterior chest pain, denies palpitations, or edema. RESPIRATORY: Denies cough or dyspnea. GASTROINTESTINAL: Denies abdominal pain, nausea, vomiting, or diarrhea. GENITOURINARY: Denies dysuria or hematuria. SKIN: Denies rash, itching, or wounds. MUSCULOSKELETAL: joint pain, or myalgia. NEUROLOGIC: Denies headache, numbness, tingling, or weakness. PSYCH: Denies depression or anxiety. All systems reviewed & are unremarkable except as noted in HPI and below PMFSH Past Medical History Medical History History of PCOS Hypertension Family History Family History Other Cerebrovascular accident Diabetes mellitus Family history of malignant neoplasm Hypertension Social History Social History Smoking packs per day: 0.5 Smoking cigarettes per day: 10.0 Years smoked: 30 Smoking pack-years: 15.00 Smoking status: Current every day smoker Tobacco type: cigarettes Alcohol intake: never Substance use: never Substance use type: does not use Gender identity (if verbalized by the patient): Female Sexual Orientation (if Verbalized by the Patient): Straight or Heterosexual Spiritual care concerns: No Comments At time of signature, I have reviewed and agree with nursing past medical, surgical, social and family history unless otherwise noted. Please see nursing chart for further information. There is no relevant family history pertinent to the presenting complaint Exam Narrative: GENERAL: Well-appearing no acute distress. HEAD: Normocephalic, atraumatic. EYES: EOMI. No redness or drainage. Conjunctivae normal. ENT: Mucous membranes pink and moist. No rhinorrhea. TMs normal bilaterally. Throat normal. Uvula midline. NECK: Normal AROM. Supple. No lymphadenopathy. CHEST: No respiratory distress. Clear to auscultation. HEART: Regular rate and rhythm. No murmur appreciated. Normal peripheral pulses. ABDOMEN: Soft,tender with palpation to RUQ, nondistended, normal active bowel sounds. MUSCULOSKELETAL: No bony tenderness. EXTREMITIES: Normal range of motion. No edema. SKIN: Warm, dry, no rash. Capillary refill normal. Normal skin turgor. NEURO: No focal deficits. Alert and oriented x3. Gait steady. PSYCH: Normal affect. No signs of depression or anxiety. Course Course Emergency Course: Patient is aware of diagnosis, understands and agrees to treatment plan. Ant
== END 2021-06-17 18:00 | disposition home or self-care (01) ==
PROVIDERS: Emergency Provider Nurse Practitioner Family; PCP Physician Assistant
DX: M54.6 Pain in thoracic spine (principal); I10 Essential (primary) hypertension; F17.210 Nicotine dependence, cigarettes, uncomplicated
CPT/HCPCS: 71046; 93005; 99213; G0463